=== PATIENT | female | born 1995 | race Asian ===

== ENCOUNTER 2017-04-10 23:49 | Emergency (ER) | payer OTHER ==
[2017-04-11] MEDS ORDERED: NS 0.9% 1000 ML* 1,000 ML IV ONE (00:02)
[2017-04-11 00:28] LABS: Hematocrit 37 % (35-47); Hemoglobin 12.5 g/dl (12.0-16.0); Mean Corpuscular HGB Conc 34 g/dl (31-36); Mean Corpuscular Hemoglobin 32 pg (27-31); Mean Corpuscular Volume 95 fL (80-97); Mean Platelet Volume 9 um3 (7.4-10.4); Red Cell Distribution Width 14 % (10.5-15); White Blood Count 8.2 10^3/ul (3.5-10.8)
[2017-04-11 00:36] LABS: ALT 9 U/L (7-52); AST 14 U/L (13-39); Albumin 3.8 g/dL (3.2-5.2); Alkaline Phosphatase 35 U/L (34-104); Anion Gap 7 mmol/L (2-11); BUN/Creatinine Ratio 25.4 (8-20); Blood Urea Nitrogen 16 mg/dL (6-24); CO2 Carbon Dioxide 24 mmol/L (22-32); Calcium 8.5 mg/dL (8.6-10.3); Chloride 102 mmol/L (101-111); EGFR Non-African American 118.2 (>60); Globulin 2.2 g/dL (2-4); Glucose 105 mg/dL (70-100); Magnesium 1.9 mg/dL (1.9-2.7); Potassium 3.1 mmol/L (3.5-5.0); Sodium 133 mmol/L (133-145)
[2017-04-11 00:47] LABS: Alcohol 49 mg/dL (<10)
[2017-04-11 00:58] LABS: TSH (Thyroid Stimulating Horm) 9.81 mcIU/mL (0.34-5.60)
[2017-04-11] MEDS ORDERED: Potassium Chlor TAB* 20 MEQ TAB.ER PO ONE (01:04)
--- NOTE | 2017-04-11 01:15 | ED ---
Rakesh Ramon Alfonso, scribed for Ciro Garcia MD on 04/11/17 at 0010 . Syncope/Near Syncope - HPI Summary HPI Summary: This patient is a 22 year old F BIBA to [facility] with a chief complaint of a syncopal episode earlier tonight. She states I was at 03/06 and I just passed out for a minute or two in front of the service counter cashier and I had a really long day in the sun. The patient rates the pain 0/10 in severity. Symptoms aggravated by nothing and alleviated by spontaneous resolution. Patient reports chills, and one drink of ETOH. She reports a PMHx of syncope. - History Of Current Complaint Chief Complaint: EDSyncope Time Seen by Provider: 04/10/17 23:55 Hx Obtained From: Patient Onset/Duration: Sudden Onset - earlier tonight, Resolved Timing: Minutes - 1-2 Context: Witnessed - 03/06 service counter cashier Aggravating Factor(s): Nothing Alleviating Factor(s): Spontaneous Resolution Associated Signs And Symptoms: Other - Positive chills and one drink of ETOH Frequency: Episodes x___ - 1, Episodes Lasting ____ (in Mins/Days/Weeks/Years) - 1-2 minutes - Allergies/Home Medications Allergies/Adverse Reactions: Allergies Allergy/AdvReac Type Severity Reaction Status Date / Time Penicillins Allergy Unknown Verified 04/10/17 23:57 Reaction Details PMH/Surg Hx/FS Hx/Imm Hx Sensory History: Denies: Hx Contacts or Glasses, Hx Deafness Opthamlomology History: Denies: Hx Contacts or Glasses, Hx Legally Blind Neurological History: Reports: Other Neuro Impairments/Disorders - Syncope Infectious Disease History: No Infectious Disease History: Denies: Traveled Outside the [place] in Last 30 Days - Family History Known Family History: Positive: Cardiac Disease - Social History Alcohol Use: None Substance Use Type: Reports: None Review of Systems Positive: Chills Neurological: Other - Positive syncope and one drink of ETOH All Other Systems Reviewed And Are Negative: Yes Physical Exam Triage Information Reviewed: Yes Vital Signs On Initial Exam: Initial Vitals Temp Pulse Resp BP Pulse Ox 98.6 F 95 16 81/41 100 04/10/17 23:54 04/10/17 23:54 04/10/17 23:54 04/10/17 23:54 08/15/17 23:54 Vital Signs Reviewed: Yes Appearance: Positive: Well-Appearing, No Pain Distress Skin: Positive: Warm Head/Face: Positive: Normal Head/Face Inspection Eyes: Positive: EOMI, NATY ENT: Positive: Hearing grossly normal Neck: Positive: Supple Respiratory/Lung Sounds: Positive: Clear to Auscultation, Breath Sounds Present Cardiovascular: Positive: RRR Abdomen Description: Positive: Nontender, Soft Bowel Sounds: Positive: Present Musculoskeletal: Positive: Strength/ROM Intact Neurological: Positive: Sensory/Motor Intact, Alert, Oriented to Person Place, Time, Normal Gait Psychiatric: Positive: Affect/Mood Appropriate Diagnostics - Vital Signs Vital Signs Temp Pulse Resp BP Pulse Ox 04/10/17 23:54 98.6 F 95 16 81/41 100 - Laboratory Result Diagrams: 04/11/17 00:15 04/11/17 00:15 Lab Statement: Any lab studies that have been ordered have been reviewed, and results considered in the medical decision making process. - EKG 0049 Cardiac Rate: NL - BPM 93 EKG Rhythm: Sinus Rhythm Re-Evaluation - Re-Evaluation First Eval Change: Improved - results d/w pt Course/Dx Assessment/Plan: This patient is a 22 year old F BIBA to [facility] with a chief complaint of a syncopal episode earlier tonight. She states I was at 7/[employer] and I just passed out for a minute or two in front of the service counter cashier and I had a really long day in the sun. The patient rates the pain 0/10 in severity. Symptoms aggravated by nothing and alleviated by spontaneous resolution. Patient reports chills, and one drink of ETOH. She reports a PMHx of syncope. An EKG reveals NSR. Patient will be discharged with follow up from PCP. The patient is agreeable with this plan. - Diagnoses Provider Diagnoses: Near syncope Discharge - Discharge Plan Condition: Stable Disposition: HOME Patient Education Materials: Syncope (ED) Referrals: [facility] [Primary Care Provider] - 3 Days The documentation as recorded by the Rakesh johns Alfonso accurately reflects the service I personally performed and the decisions made by me, Ciro Garcia MD.
[2017-04-11 01:52] VITALS: BP 89/51
== END 2017-04-11 01:55 | disposition home or self-care (01) ==
LOC: ED 23:49
DX: R55 Syncope and collapse (principal); R68.83 Chills (without fever)
CPT/HCPCS: 36415; 80053; 80320; 83605; 83735; 84443; 84484; 84702; 85025; 93005; 99285; A9270-GY; G0480

== ENCOUNTER 2017-12-12 08:45 | Emergency (ER) | payer OTHER ==
--- NOTE | 2017-12-12 14:30 | ED ---
Elijah Ramon Gabriel, scribed for Aaron Rivera MD on 12/12/17 at 0902 . Psychiatric Complaint - HPI Summary HPI Summary: This patient is a 22 year old F [facility] in by on a 941 after she called [facility] this morning asking to be seen by a counselor. Patient denies SI. When she spoke with [facility] she answered maybe when asked if she wanted to hurt herself, this prompted them to call the police, who brought her here. Pt states she answered maybe due to her lack of eating and general upkeep. She states she feels poor recently due to a bad break up. - History Of Current Complaint Chief Complaint: EDMentalHealth Time Seen by Provider: 12/12/17 08:56 Hx Obtained From: Patient Onset/Duration: Still Present Timing: Constant Severity Initially: Mild Severity Currently: Mild Aggravating Factor(s): Recent Stress Related History: Negative For: Prior Psychiatric Issues Has Suicidal: Denies: Thoughts, With A Plan - Allergies/Home Medications Allergies/Adverse Reactions: Allergies Allergy/AdvReac Type Severity Reaction Status Date / Time MS Penicillins [Penicillins] Allergy Unknown Verified 04/10/17 23:57 Reaction Details Home Medications: Home Medications NK [No Home Medications Reported] 12/12/17 [History Confirmed 12/12/17] PMH/Surg Hx/FS Hx/Imm Hx Endocrine/Hematology History: Denies: Hx Diabetes, Hx Systemic Lupus Erythematosus, Hx Unexplained Bleeding Cardiovascular History: Denies: Hx Aneurysm, Hx Angina Respiratory History: Denies: Hx Asthma, Hx Seasonal Allergies GI History: Denies: Hx Cirrhosis, Hx Crohn's Disease History: Denies: Hx Acute Renal Failure, Hx Benign Prostatic Hyperplasia Sensory History: Denies: Hx Contacts or Glasses, Hx Legally Blind, Hx Deafness Opthamlomology History: Denies: Hx Contacts or Glasses, Hx Legally Blind Neurological History: Reports: Other Neuro Impairments/Disorders - Syncope Infectious Disease History: No Infectious Disease History: Denies: Traveled Outside the [place] in Last 30 Days - Family History Known Family History: Positive: Unknown - Pt states parents passed a long time ago, unsure of cause - Social History Occupation: Student Lives: Dormitory/Roommates Alcohol Use: None Substance Use Type: Reports: None Smoking Status (MU): Never Smoked Tobacco Review of Systems Negative: Fever Positive: Other - NEGATIVE SI All Other Systems Reviewed And Are Negative: Yes Physical Exam - Summary Physical Exam Summary: General: well-appearing, no pain distress Skin: warm, color reflects adequate perfusion, dry Head: normal Eyes: EOMI, NATY ENT: normal Neck: supple, nontender Respiratory: CTA, breath sounds present Cardiovascular: RRR Abdomen: soft, nontender Bowel: present Musculoskeletal: normal, strength/ROM intact Neurological: normal, sensory/motor intact, A&O x3 Psychological: affect/mood appropriate Triage Information Reviewed: Yes Vital Signs On Initial Exam: Initial Vitals Temp Pulse Resp BP Pulse Ox 98.3 F 75 16 111/67 100 12/12/17 08:46 12/12/17 08:46 12/12/17 08:46 12/12/17 08:46 12/12/17 08:46 Vital Signs Reviewed: Yes Diagnostics - Vital Signs Vital Signs Temp Pulse Resp BP Pulse Ox 12/12/17 08:46 98.3 F 75 16 111/67 100 - Laboratory Lab Statement: Any lab studies that have been ordered have been reviewed, and results considered in the medical decision making process. Re-Evaluation - Re-Evaluation First Eval Re-Evaluation Time: 09:19 Change: Unchanged Comment: The patient is requesting not to have her blood drawn. I discussed this with mental health and they state she can skip the blood draw for now. Although if she needs to be admitted after the [facility] she will need to have it drawn. Course/Dx - Differential Dx/Clinical Impression Provider Diagnosis: Mental health problem Discharge - Sign-Out/Discharge Documenting (check all that apply): Discharge - Discharge Plan Condition: Stable Disposition: HOME [facility] - - Billing Disposition and Condition Condition: STABLE Disposition: HOME The documentation as recorded by the Elijah johns Gabriel accurately reflects the service I personally performed and the decisions made by me, Aaron Rivera MD.
[2017-12-12 15:12] VITALS: BP 110/68
== END 2017-12-12 15:09 | disposition home or self-care (01) ==
LOC: ED 08:45
DX: F43.9 Reaction to severe stress, unspecified (principal)
CPT/HCPCS: 99284